=== PATIENT | female | born 1985 | race American Indian/Alaskan Native ===

== ENCOUNTER 2018-03-20 16:40 | Outpatient (CLI) | payer OTHER | END 2018-03-20 19:57 | disposition home or self-care (01) | LOC: TRG 16:40 → LABHHL 16:40 → EDSTATUS 19:16 → TRG 19:20 | PROVIDERS: ATTEND Obstetrics & Gynecology | DX: O36.0130 Maternal care for anti-D [Rh] antibodies, third trimester, not applicable or unspecified (principal); Z3A.28 28 weeks gestation of pregnancy | CPT/HCPCS: 86850; 86870; 86900; 86901; 96372; J2790 ==